=== PATIENT | male | born 1995 | race Caucasian/White ===

== ENCOUNTER 2024-07-03 16:15 | Emergency (ER) | payer BC, SELFPAY ==
[2024-07-03 16:17] VITALS: BP 139/96; PULSE 90; RESP 20; O2SAT 99
--- NOTE | 2024-07-03 17:30 | DI.CT_ITS ---
Exam(s) CT HEAD WO EXAM: CT HEAD WO CLINICAL HISTORY: Headache, Head injury 1 month ago. TECHNIQUE: Imaging Protocol: Axial computed tomography images with coronal and sagittal reformatted images were created and reviewed COMPARISON: No exams were available for comparison FINDINGS: Ventricles and Extra axial spaces: Normal in size and morphology for the patient's age. Hemorrhage: None. Cerebral parenchyma: No evidence of acute infarct or mass. Midline shift: None. Brainstem/Cerebellum: Normal. Calvarium: Normal. Visualized Paranasal sinuses:Clear. Mastoids: Clear. Soft Tissues: Unremarkable. ORBITS: Unremarkable. PITUITARY: Not enlarged. IMPRESSION: No acute intracranial process. RADIATION DOSE DELIVERED: Total DLP DATA REPOSITORY: All CT scans at this facility are submitted to the National Radiology Data Registry (NRDR) Dose Index Registry (DIR) with the [employer] (ACR). RADIATION OPTIMIZATION: All CT scans at this facility use at least one of these dose optimization te chniques: automated exposure control; mA and/or kV adjustment per patient size (includes targeted exa ms where dose is matched to clinical indication); or iterative reconstruction.
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
[2024-07-03 17:51] LABS: Abs Immature Grans 0.03 10^3/uL (0.0-0.06); Absolute Basophil Count 0.03 10^3/uL (0.0-0.2); Absolute Lymphocyte Count 2.17 10^3/uL (1.2-3.4); Absolute Monocyte Count 0.67 10^3/uL (0.1-0.8); Absolute Neutrophil Count 6.28 10^3/uL (1.2-6.7); Basophils % 0.3 %; Eosinophils % 2.1 %; HCT 47.1 % (40.0-50.0); HGB 16.3 g/dL (13.5-17.5); Immature Grans % 0.3 %; Lymphocytes % 23.1 %; MCH 30.2 pg (27.0-33.0); MCHC 34.6 % (32.0-36.0); MCV 87 fL (80-95); MPV 9.8 fL (8.0-11.0); Monocytes % 7.1 %; Neutrophils % 67.1 %; Platelet Count 275 10^3/uL (130-400); RDW 11.3 % (11.8-14.1); RDW-SD 36.2 fL; WBC 9.38 10^3/uL (4.4-10.8)
[2024-07-03 18:11] LABS: Lipase 57 U/L (16-77)
[2024-07-03 18:12] VITALS: RESP 16
[2024-07-03 18:16] LABS: ALT 53 U/L (16-63); AST 20 U/L (15-37); Albumin 4.2 g/dL (3.4-5.0); Alkaline Phosphatase 75 U/L (46-116); BUN 11 mg/dL (7-18); Bilirubin, Total 0.72 mg/dL (0.2-1.0); CREATININE 1.1 mg/dL (0.70-1.30); Calcium 9.4 mg/dL (8.5-10.1); Chloride 102 mmol/L (98-107); Estimated GFR 93.19 (mL/min/1.73m2); Glucose 89 mg/dL (74-106); Magnesium 2.1 mg/dL (1.8-2.4); Potassium 3.6 mmol/L (3.5-5.1); Sodium 140 mmol/L (136-145); Total Protein 7.8 g/dL (6.4-8.2)
[2024-07-03 18:56] LABS: Bilirubin Negative (Negative); Blood Negative (Negative); Clarity Clear (Clear); Glucose Negative (Negative); Ketones Trace mg/dL (Negative); Leukocyte Esterase Negative (Negative); Nitrite Negative (Negative); Specific Gravity >= 1.030 (1.005-1.025); Urobilinogen 0.2 mg/dL (Up to 0.2)
[2024-07-03 20:06] VITALS: BP 120/88; PULSE 68; RESP 16; TEMP 36.8; O2SAT 99
== END 2024-07-03 19:31 | disposition home or self-care (01) ==
PROVIDERS: Emergency Provider Registered Nurse Emergency; PCP Family Medicine
DX: G44.309 Post-traumatic headache, unspecified, not intractable (principal); F07.81 Postconcussional syndrome; E86.0 Dehydration
CPT/HCPCS: 80053; 83690; 99284; 70450; 81003; 83735; 85025; 99283

== ENCOUNTER 2025-03-05 13:20 | Outpatient (CLI) | payer BC, SELFPAY ==
--- NOTE | 2025-03-05 12:30 | DI.RAD_ITS ---
Exam(s) XR CHEST 2V PA LATERAL EXAM: XR CHEST 2V PA LATERAL CLINICAL HISTORY: cough,R05.9, ? pneumonia TECHNIQUE: 2D digital imaging was performed of the chest. Two images were obtained. PA and lateral views were obtained. COMPARISON: No exams were available for comparison FINDINGS: MEDIASTINUM: Normal. HEART: Normal. PULMONARY VASCULATURE: Normal. LUNGS: Clear. PLEURAL SPACE: No pleural effusion or pneumothorax. BONE:Within normal limits for the patient's age. OTHER FINDINGS:Normal. IMPRESSION: No acute pulmonary findings. DATA REPOSITORY: RADIATION DOSE DELIVERED:
--- NOTE | 2025-03-05 16:25 | DI.VRAD_ITS ---
PROCEDURE INFORMATION: Exam: XR Chest Exam date and time: 03/05/2025 4:00 PM Age: 29 years old Clinical indication: Cough and other: ? Pneumonia TECHNIQUE: Imaging protocol: Radiologic exam of the chest. Views: 2 views. COMPARISON: No relevant prior studies available. FINDINGS: Lungs: There is no pulmonary consolidation or mass. Pleural spaces: There is no evidence of pleural effusion or pneumothorax. Heart/Mediastinum: The cardiomediastinal silhouette is normal. Bones/joints: No acute osseous findings. IMPRESSION: No acute cardiopulmonary disease. Dictated and Authenticated by: Alaina Wade MD. Orderin Patrick Raya MD
== END 2025-03-05 13:40 ==
LOC: DI 13:20
PROVIDERS: PCP Family Medicine; Visit Provider Physician Assistant
DX: R05.9 Cough, unspecified (principal)
CPT/HCPCS: 71046

== ENCOUNTER 2025-06-29 21:43 | Emergency (ER) | payer BC, SELFPAY ==
[2025-06-29 21:45] VITALS: BP 119/78; PULSE 65; RESP 16; TEMP 37.3; O2SAT 98
[2025-06-29 21:55] VITALS: BP 119/78; PULSE 65; RESP 16; TEMP 37.3; O2SAT 98
[2025-06-29] MEDS: ACETAMINOPHEN 1,000 MG/100 ML BAG 400 MG IVPB (22:26)
[2025-06-29 22:28] LABS: Abs Immature Grans 0.02 10^3/uL (0.0-0.06); HCT 44.1 % (40.0-50.0); HGB 15.6 g/dL (13.5-17.5); Immature Grans % 0.2 %; MCH 30.6 pg (27.0-33.0); MCHC 35.4 % (32.0-36.0); MCV 87 fL (80-95); MPV 10.4 fL (8.0-11.0); Platelet Count 263 10^3/uL (130-400); RBC 5.10 10^6/uL (4.36-5.78); RDW 11.5 % (11.8-14.1); RDW-SD 36.3 fL; WBC 8.49 10^3/uL (4.4-10.8)
[2025-06-29] MEDS: Normal Saline - Diluent 50 ML VIAL IJ (22:38)
[2025-06-29] MEDS: Normal Saline Flush 10 ML SYR IVP (22:38)
[2025-06-29] MEDS: Omnipaque 350 MG/ML 100 ML BTL IJ (22:39)
--- NOTE | 2025-06-29 22:40 | DI.CT_ITS ---
Exam(s) CT ABDOMEN PELVIS W EXAM: CT ABDOMEN PELVIS W CLINICAL HISTORY: abd pain, nausea. TECHNIQUE: Imaging Protocol: Axial computed tomography images with coronal and sagittal reformatted images were created and reviewed CONTRAST MATERIAL: Intravenous: Omnipaque-350 100cc Oral: None COMPARISON: No exams were available for comparison FINDINGS: VISUALIZED LUNG BASES: No nodules nor pleural effusions evident. ABDOMEN: There is no ascites. LIVER: There are no focal hepatic lesions evident. No dilated intrahepatic ducts. GALLBLADDER/BILIARY: No obvious gallbladder pathology. CBD is not dilated. PANCREAS: No evidence of pancreatic mass nor dilatation of the pancreatic duct. SPLEEN: Spleen is not enlarged. No obvious intrasplenic lesions. Splenic and portal veins are patent. ADRENALS: There are no significant adrenal masses. KIDNEYS:No cysts evident. No solid renal masses. No calculi nor hydronephrosis.. ABDOMINAL AORTA: Abdominal aorta is not enlarged. LYMPH NODES:There is no retroperitoneal nor paraaortic adenopathy. ABDOMINAL WALL: No evidence of significant anterior abdominal wall nor inguinal hernia. GI: There is no evidence of bowel obstruction, free air, nor abscess. PELVIS: GI: No evidence of appendicitis.No evidence of sigmoid diverticulitis.Colon is collapsed. LYMPH NODES: There is no intrapelvic nor inguinal adenopathy. REPRODUCTIVE: Prostate size normal. Seminal vesicles unremarkable. URINARY BLADDER: No calculi nor obvious masses evident OSSEOUS: No fractures and no significant osseous lesions. Sacroiliac joints appear unremarkable IMPRESSION: 1. No significant acute findings in the abdomen and pelvis. Preliminary virtual Radiology report was reviewed RADIATION DOSE DELIVERED: 552.81mGy.cm Total DLP DATA REPOSITORY: All CT scans at this facility are submitted to the National Radiology Data Registry (NRDR) Dose Index Registry (DIR) with the [employer] (ACR). RADIATION OPTIMIZATION: All CT scans at this facility use at least one of these dose optimization techniques: automated exposure control; mA and/or kV adjustment per patient size (includes targeted exams where dose is matched to clinical indication); or iterative reconstruction.
[2025-06-29 22:47] LABS: ALT 43 U/L (16-63); AST 22 U/L (15-37); Albumin 4.0 g/dL (3.4-5.0); Alkaline Phosphatase 67 U/L (46-116); Anion Gap 8.8 mmol/L (3-11); BUN 13 mg/dL (7-18); Bilirubin, Total 0.5 mg/dL (0.2-1.0); CO2 29.2 mmol/L (21.0-32.0); Calcium 9.0 mg/dL (8.5-10.1); Chloride 102 mmol/L (98-107); Estimated GFR 103.84 (mL/min/1.73m2); Glucose 98 mg/dL (74-106); Lipase 21 U/L (<78); Magnesium 2.0 mg/dL (1.8-2.4); Potassium 3.6 mmol/L (3.5-5.1); Sodium 140 mmol/L (136-145); Total Protein 7.1 g/dL (6.4-8.2)
--- NOTE | 2025-06-29 22:48 | DI.VRAD_ITS ---
PROCEDURE INFORMATION: Exam: CT Abdomen And Pelvis With Contrast Exam date and time: 06/29/2025 10:35 PM Age: 29 years old Clinical indication: Other: Abd pain, nausea TECHNIQUE: Imaging protocol: Computed tomography of the abdomen and pelvis with contrast. Contrast material: OMNIPAQUE 350; Contrast volume: 100 ml; Contrast route: INTRAVENOUS (IV); COMPARISON: No relevant prior studies available. FINDINGS: Lungs: Lung bases are clear. Liver: The liver has a normal appearance. Gallbladder and biliary ducts: The gallbladder is unremarkable. No biliary ductal dilatation. Pancreas: The pancreas demonstrates normal size. No pancreatic ductal dilatation. Spleen: The spleen demonstrates normal size. Adrenal glands: The adrenal glands have a normal appearance. Kidneys and ureters: The kidneys are normal in size. No hydronephrosis. No hydroureter or ureterolithiasis. Stomach and bowel: The bowel demonstrates overall normal caliber and wall thickness. There is mild circumferential wall thickening throughout the colon which is predominantly decompressed. Appendix: The appendix is thin walled. Intraperitoneal space: Unremarkable. No free air. No significant fluid collection. Vasculature: The IVC and aorta have a normal appearance. Lymph nodes: No enlarged lymph nodes. Urinary bladder: The bladder is thin walled and fluid filled. Reproductive: Unremarkable as visualized. Bones/joints: Unremarkable. No acute fracture. Soft tissues: Unremarkable. IMPRESSION: 1. Mild circumferential wall thickening of the colon without pericolonic fat stranding. Findings most likely represent underdistention; however mild acute colitis could be considered in the differential if clinically appropriate. 2. No other acute intra-abdominal findings. 3. Normal appendix. Dictated and Authenticated by: Nilam Casas MD. Orderin Carlos Varner MD
[2025-06-29] MEDS: Ketorolac 15 MG/ML VIAL IVP (23:17)
--- NOTE | 2025-06-29 23:19 | ED.GENADUL_ITS ---
Discharge Plan Disposition Patient Disposition: Home Condition: Good Discharge Details Clinical Impression: Colitis Primary Care Provider: Silvano Morris ED Provider: Gardenia Gonzalez Home Meds and New Rx's Prescriptions: Continued albuterol sulfate 90 mcg/actuation HFA aerosol inhaler 2 puff inhalation Q6H PRN (Reason: shortness of breath or wheezing) Qty: 8.5 0RF (DME) Aerochamber MV Spacer See Rx Instructions .ROUTE .MEDSUPPLY Qty: 1 0RF Rx Instructions: As directed escitalopram oxalate 10 mg tablet 10 mg PO DAILY propranolol 20 mg PO 3XD Discharge Instructions Instructions: Diarrhea, Adult ED Additional Instructions: Tylenol and ibuprofen over the counter for pain; follow the directions on the bottle. Call your primary care doctor in the morning to schedule an appointment to be seen within the next 72 hours to followup on your visit here. Return to the emergency department for new or worsening symptoms including fever, new/different/worse pain, blood in your stool, vomiting, or if you have any other concerns. HPI General Mode of arrival: ambulatory . Date/Time Provider Initiated Documentation: 06/29/25 21:43 . Limitations to Documentation: no limitations . Information obtained by: patient . HPI Narrative: 29yo M presenting with abdominal pain. For the past few weeks has had decreased appetite and mild nausea, no vomiting. For the past week has noted that he is having fewer bowel movements despite feeling like he has to go; when he does go his stool is loose. No blood or mucous in stool. Pain is diffuse, mild, seems worse in the epigastric region but is present all over. No dysuria, hematuria, or flank pain. No fevers or chills. Otherwise in his usual state of health. Related Data Home Medications ?Medication ?Instructions ?Recorded ?Confirmed propranolol 20 mg PO 3XD 07/03/24 escitalopram oxalate 10 mg tablet 10 mg PO DAILY 08/2306/29/25 albuterol sulfate 90 mcg/actuation 2 puff inhalation Q 6H PRN 03/04/25 06/29/25 aerosol inhaler shortness of breath or wheez ing #8.5 grams inhalational spacing device #1 ea 03/04/25 06/29/25 (Aerochamber MV spacer) Previous Rx's ?Medication ?Instructions ?Recorded albuterol sulfate 90 mcg/actuation 2 puff inhalation Q 6H PRN 03/04/25 aerosol inhaler shortness of breath or wheez ing #8.5 grams inhalational spacing device #1 ea 03/04/25 (Aerochamber MV spacer) Allergies Allergy/AdvReac Type Severity Reaction Status Date / Time azithromycin AdvReac Unknown Unknown Verified 03/08/25 16:57 General Stated Complaint: Abd Prob MARISOL: 3 Review of Systems Narrative: see HPI Exam Narrative Exam Narrative: General: Alert, well appearing, well nourished, in no acute distress. Head: Normocephalic, atraumatic Neck: Trachea midline, ?Neck supple. ENT: ?MMM.? No oropharygeal lesions or exudate. Cardiac: ?RRR, no murmurs appreciated Resp: No respiratory distress. CTAB. Abd: ?Soft, non-distended, mild diffuse abdominal tenderness, no rebound or guarding. : ?No suprapubic tenderness. No CVA tenderness. Extremities: ?No deformities.? No peripheral edema. Neurologic: GCS 15. ? Moves all extremities freely against gravity Course Vital Signs Vital signs: Vital Signs Temperature 37.3 C 06/29/25 21:45 Pulse 65 06/29/25 21:45 Respiratory Rate 16 06/29/25 21:45 Blood Pressure 119/78 06/29/25 21:45 Pulse Oximetry 98 06/29/25 21:45 Temperature 37.3 C 06/29/25 21:55 Temperature Source Oral 06/29/25 21:55 Pulse 65 06/29/25 21:55 Respiratory Rate 16 06/29/25 21:55 Blood Pressure 119/78 06/29/25 21:55 Blood Pressure Position Supine 06/29/25 21:55 Pulse Oximetry 98 06/29/25 21:55 Oxygen Delivery Method Room Air 06/29/25 21:55 Oxygen Flow Rate 0 06/29/25 21:55 Pain Level 3 06/29/25 21:55 Lab/Test Results Lab/Test Results: Laboratory Tests Range/Units 06/29/25 22:21 WBC (4.4-10.8) 10^3/uL 8.49 RBC (4.36-5.78) 10^6/uL 5.10 Hgb (13.5-17.5) g/dL 15.6 Hct (40.0-50.0) % 44.1 MCV (80-95) fL 87 MCH (27.0-33.0) pg 30.6 MCHC (32.0-36.0) % 35.4 RDW (11.8-14.1) % 11.5 L Plt Count (130-400) 10^3/uL 263 MPV (8.0-11.0) fL 10.4 Immature Gran % % 0.2 Neutrophils % % 64.9 Lymphocytes % % 23.6 Monocytes % % 8.7 Eosinophils % % 2.2 Basophils % % 0.4 Nucleated RBC % (0.0-0.3) % 0.0 Absolute Neutrophils (1.2-6.7) 10^3/uL 5.51 Absolute Lymphocytes (1.2-3.4) 10^3/uL 2.00 Absolute Monocytes (0.1-0.8) 10^3/uL 0.74 Absolute Eosinophils (0.0-0.7) 10^3/uL 0.19 Absolute Basophils (0.0-0.2) 10^3/uL 0.03 Sodium (136-145) mmol/L 140 Potassium (3.5-5.1) mmol/L 3.6 Chloride (98-107) mmol/L 102 Carbon Dioxide (21.0-32.0) mmol/L 29.2 Anion Gap (3-11) mmol/L 8.8 BUN (7-18) mg/dL 13 Creatinine (0.70-1.30) mg/dL 1.0 Est GFR (CKD-EPI 2020) (mL/min/1.73m2) 103.84 Glucose (74-106) mg/dL 98 Calcium (8.5-10.1) mg/dL 9.0 Magnesium (1.8-2.4) mg/dL 2.0 Total Bilirubin (0.2-1.0) mg/dL 0.5 AST (15-37) U/L 22 ALT (16-63) U/L 43 Alkaline Phosphatase (46-116) U/L 67 Total Protein (6.4-8.2) g/dL 7.1 Albumin (3.4-5.0) g/dL 4.0 Lipase (<78) U/L 21 Medical Decision Making 29yo M presenting with mild diffuse abdominal pain and diarrhea. Vital signs reassuring on arrival, mild abdominal tenderness on exam with no peritoneal signs. Well hydrated. Not suggestive of cholecystitis, nephrolithisias, pyelonephritits. Will treat pain with tylenol and toradol while awaiting results of workup. Labs reviewed as below, CBC reassuring with no leukoctysosis or anemia, CMP with no actionable abnormalities, Mg normal, lipase not suggestive of pancreatitis. CT abd pelvis independently reviewed; no obstruction or free fluid on my view, radiology read below with underdistenstion vis mild colitis. On reassessment he remains well appearing with reassuring vital signs and abdominal exam. Will discharge home to PCP followup. Discharge instructions and return precautions were reviewed with patient who verbalized understanding. All questions were answered and he is in full agreement with the plan. IMPRESSION: 1. Mild circumferential wall thickening of the colon without pericolonic fat stranding. Findings most likely represent underdistention; however mild acute colitis could be considered in the differential if clinically appropriate. 2. No other acute intra-abdominal findings. 3. Normal appendix Lab Data Lab results reviewed: Yes I reviewed the patient's lab results. Labs: Laboratory Tests Range/Units 06/29/25 22:21 WBC (4.4-10.8) 10^3/uL 8.49 RBC (4.36-5.78) 10^6/uL 5.10 Hgb (13.5-17.5) g/dL 15.6 Hct (40.0-50.0) % 44.1 MCV (80-95) fL 87 MCH (27.0-33.0) pg 30.6 MCHC (32.0-36.0) % 35.4 RDW (11.8-14.1) % 11.5 L Plt Count (130-400) 10^3/uL 263 MPV (8.0-11.0) fL 10.4 Immature Gran % % 0.2 Neutrophils % % 64.9 Lymphocytes % % 23.6 Monocytes % % 8.7 Eosinophils % % 2.2 Basophils % % 0.4 Nucleated RBC % (0.0-0.3) % 0.0 Absolute Neutrophils (1.2-6.7) 10^3/uL 5.51 Absolute Lymphocytes (1.2-3.4) 10^3/uL 2.00 Absolute Monocytes (0.1-0.8) 10^3/uL 0.74 Absolute Eosinophils (0.0-0.7) 10^3/uL 0.19 Absolute Basophils (0.0-0.2) 10^3/uL 0.03 Sodium (136-145) mmol/L 140 Potassium (3.5-5.1) mmol/L 3.6 Chloride (98-107) mmol/L 102 Carbon Dioxide (21.0-32.0) mmol/L 29.2 Anion Gap (3-11) mmol/L 8.8 BUN (7-18) mg/dL 13 Creatinine (0.70-1.30) mg/dL 1.0 Est GFR (CKD-EPI 2020) (mL/min/1.73m2) 103.84 Glucose (74-106) mg/dL 98 Calcium (8.5-10.1) mg/dL 9.0 Magnesium (1.8-2.4) mg/dL 2.0 Total Bilirubin (0.2-1.0) mg/dL 0.5 AST (15-37) U/L 22 ALT (16-63) U/L 43 Alkaline Phosphatase (46-116) U/L 67 Total Protein (6.4-8.2) g/dL 7.1 Albumin (3.4-5.0) g/dL 4.0 Lipase (<78) U/L 21 PFSH All Active Problems (Updated 06/29/25 @ 23:40 by Gardenia Gonzalez MD) Colitis (Acute) Medical History Hx of Kawasaki's disease Obesity Chronic lower back pain Tobacco use Seasonal allergies Migraine Polysubstance abuse ADHD Anxiety OCD (obsessive compulsive disorder) Asperger disorder Surgical History History of tonsillectomy and adenoidectomy Family History Mother Cancer [facility] CANCER COPD (chronic obstructive pulmonary disease) Father , OVERDOSE Alcohol use disorder Substance use disorder Bipolar 1 disorder PTSD (post-traumatic stress disorder) Brother , LIVER FAILURE Hodgkin disease in adult ADHD Substance use disorder Social History Smoking/Tobacco Use Status: Current every day Tobacco Type: e-cigarettes Smoking risk assessment performed?: Yes Alcohol Intake: never Drug use: Current Sobriety Substance use type: former substance user, marijuana, heroin, opiates and other Details: FENTANYL Details: just uses marijuana now 06/29/25 Housing: house Do you feel safe at home: Yes Do you feel safe in your relationship?: Yes
[2025-06-30 00:11] VITALS: BP 122/68; PULSE 68; RESP 16; TEMP 36.8; O2SAT 98
== END 2025-06-30 00:02 | disposition home or self-care (01) ==
PROVIDERS: Emergency Provider Student in an Organized Health Care Education/Training Program; PCP Family Medicine
DX: K52.9 Noninfective gastroenteritis and colitis, unspecified (principal); F17.220 Nicotine dependence, chewing tobacco, uncomplicated
CPT/HCPCS: 36415; 80053; 83690; 96365; 96375; 99285; 74177; 83735; 85025; J0131; J1885; J3490